=== PATIENT | male | born 2005 | race Caucasian/White ===

== ENCOUNTER 2023-09-20 02:46 | Emergency (ER) | payer SELFPAY ==
[2023-09-20] MEDS ORDERED: LORazepam 2 MG/ML SYR.(CARPUJECT) ONE (03:01)
[2023-09-20 03:06] LABS: #Eosinphils 0.1 thou/uL (0.0-0.7); #Monocytes 0.8 thou/uL (0.11-0.59); #Neutrophils 4.7 thou/uL (1.40-6.50); %Basophils 0.4 % (0.0-1.0); %Eosinophils 0.9 % (0.0-10.0); %Lymphocytes 27.5 % (28.0-48.0); %Monocytes 10.5 % (0.0-4.0); %Neutrophils 60.2 % (31.0-61.0); Hematocrit 42.9 % (42.0-52.0); Hemoglobin 15.6 g/dL (14.0-18.0); Mean Corpuscular HGB CONC 36.4 g/dL (32.0-36.0); Mean Corpuscular Hemoglobin 32.4 pg (25.0-35.0); Platelet Count 242 10x3/uL (130-400); RBC Distribution Width 11.5 % (11.5-14.5); Red Blood Cell (RBC) Count 4.82 mill/uL (4.00-5.20); White Blood Cell (WBC) Count 7.9 10x3/uL (4.8-10.8)
[2023-09-20 03:31] LABS: Anion Gap 15 mmol/L (10-20); BUN (Urea Nitrogen) 20 mg/dL (8.4-21.0); Bilirubin, Total 0.5 mg/dL (0.2-1.2); Calc. Creatinine Clearance 0 mL/min (70-130); Calcium 9.9 mg/dL (7.8-10.44); Carbon Dioxide 24 mmol/L (22-29); Chloride 104 mmol/L (98-107); Estimated GFR 78; Glucose 130 mg/dL (70-105); Potassium 3.4 mmol/L (3.5-5.1); Protein, Total 7.7 g/dL (6.0-8.3); Sodium 140 mmol/L (136-145)
[2023-09-20 03:32] LABS: ALT (SGPT) 11 U/L (8-55); AST (SGOT) 18 U/L (10-45); Acetaminophen Less than 10 mcg/mL (10.0-30.0); Albumin 4.9 g/dL (3.5-5.0); Alcohol Less than 10.0 mg/dL (Less than 10); Alkaline Phosphatase 69 U/L (50-130); Globulin 2.8 g/dL (2.4-3.5); Salicylate Less than 8.0 mg/dL (15.0-30.0)
[2023-09-20 03:38] LABS: Troponin I Less than 0.010 ng/mL (< 0.028)
== END 2023-09-20 06:00 | disposition home or self-care (01) ==
LOC: ERS 02:46
DX: F12.19 Cannabis abuse with unspecified cannabis-induced disorder (principal); R07.9 Chest pain, unspecified; I10 Essential (primary) hypertension
CPT/HCPCS: 71045; 80053; 80307; 83880; 84484; 85025; 85379; 93005; 96361; 96374; J2060